=== PATIENT | male | born 1975 | race African-American/Black ===

== ENCOUNTER 2016-09-21 10:59 | Emergency (ER) | payer MEDICARE, OTHER ==
[~2016-09-21] VITALS: Ht 172.7 cm; Wt 69.0 kg
[2016-09-21 11:05] VITALS: BP 142/86
[2016-09-21] MEDS ORDERED: SODIUM CHLORIDE 0.9% 250 ML IRRIG SOLUTION BOTTLE IRRIG ONE (11:45)
[2016-09-21] MEDS ORDERED: IBUPROFEN 800 MG TABLET PO ONE (11:45)
[2016-09-21] MEDS ORDERED: PERTUSS(ACELL),DIPH,TET VAC/PF 0.5 ML VIAL IM ONE (11:45)
[2016-09-21] MEDS ORDERED: AMOX TR/POT CLAV 875 MG/125 MG TABLET PO ONE (13:15)
== END 2016-09-21 13:31 | disposition home or self-care (01) ==
LOC: EMS 11:00
DX: S41.132A Puncture wound without foreign body of left upper arm, initial encounter (principal); F17.210 Nicotine dependence, cigarettes, uncomplicated; W54.0XXA Bitten by dog, initial encounter; Y93.89 Activity, other specified; Y92.89 Other specified places as the place of occurrence of the external cause; Y99.8 Other external cause status
CPT/HCPCS: 90471; 90715; 99284; 99406

== ENCOUNTER 2016-09-21 14:38 | Emergency (ER) | payer MEDICARE, OTHER ==
[~2016-09-21] VITALS: Ht 172.7 cm; Wt 69.0 kg
[2016-09-21 15:06] VITALS: BP 134/81
== END 2016-09-21 15:27 | disposition home or self-care (01) ==
LOC: EMS 14:39
DX: S41.132A Puncture wound without foreign body of left upper arm, initial encounter (principal); F17.210 Nicotine dependence, cigarettes, uncomplicated; Z02.89 Encounter for other administrative examinations; W54.0XXA Bitten by dog, initial encounter; Y93.89 Activity, other specified; Y92.89 Other specified places as the place of occurrence of the external cause; Y99.8 Other external cause status
CPT/HCPCS: 12001; 99283

== ENCOUNTER 2017-07-13 11:22 | Inpatient (IN) | payer MEDICARE, OTHER ==
[~2017-07-13] VITALS: Ht 172.7 cm; Wt 72.0 kg
[2017-07-13 12:16] LABS: BASOPHILS % (AUTO) 1.2 % (0.0-2.0); EOSINOPHILS % (AUTO) 7.2 % (1.0-6.0); HEMATOCRIT 32.8 % (41-53); HEMOGLOBIN 11.1 g/dL (13.5-17.5); LYMPHOCYTES # (AUTO) 2.1 K/uL (1.0-4.8); LYMPHOCYTES % (AUTO) 15.8 % (22.0-44.0); MEAN CORPUSCULAR HEMOGLOBIN 27.9 pg (26.0-34.0); MEAN CORPUSCULAR HGB CONC 33.8 G/dL (31.0-37.0); MEAN CORPUSCULAR VOLUME 83 fL (80-100); MONOCYTES # (AUTO) 1.1 K/uL (0.1-1.0); MONOCYTES % (AUTO) 8.4 % (2.0-9.0); NEUTROPHILS # (AUTO) 8.8 K/uL (1.8-7.7); NEUTROPHILS % (AUTO) 67.4 % (40.0-70.0); PLATELET COUNT (AUTO) 334 K/uL (150-450); RED BLOOD CELL COUNT(AUTO) 3.96 MIL/uL (4.50-5.90); RED CELL DISTRIBUTION WIDTH 16.4 % (11.5-14.5); WHITE BLOOD COUNT (AUTO) 13.1 K/uL (4.5-11.0)
[2017-07-13 12:39] LABS: ANION GAP 13 mmol/L (8-16); CALCIUM, TOTAL 8.7 mg/dL (8.8-10.5); CARBON DIOXIDE 25 mmol/L (22-29); CHLORIDE 100 mmol/L (98-107); CREATININE 0.93 mg/dL (0.60-1.30); GLOMERULAR FILTR. RATE CALC > 60 mL/min (>60); POTASSIUM 3.7 mmol/L (3.5-5.1); SODIUM SERUM 138 mmol/L (136-145); UREA NITROGEN, BLOOD 11 mg/dL (7-18)
[2017-07-13 12:46] LABS: ALANINE AMINOTRANSFERASE 26 U/L (12-78); ALBUMIN 3.6 g/dL (3.4-5.0); ASPARTATE AMINOTRANSFERASE 23 U/L (15-37); BILIRUBIN,TOTAL 0.3 mg/dL (0.1-1.0); TOTAL PROTEIN, SERUM 7.3 g/dL (6.4-8.2)
[2017-07-13] MEDS ORDERED: LOPERAMIDE HCL 2 MG CAPSULE PO PRN (13:00)
[2017-07-13] MEDS ORDERED: MAG HYDROX/AL HYDROX/SIMETH ES 30 ML SUSPENSION UDCUP PO PRN (13:00)
[2017-07-13] MEDS ORDERED: TUBERCULIN, PURIFIED PROTEIN DERIVATIVE 5 TU/0.1 ML SYG ID ONE (13:00)
[2017-07-13] MEDS ORDERED: GuaiFENesin/D-METHORPHAN [SUGAR-FREE] 200-20MG/10 ML SYRUP UDCUP PO PRN (13:00)
[2017-07-13] MEDS ORDERED: HydrOXYzine PAMOATE 50 MG CAPSULE PO PRN (13:00)
[2017-07-13] MEDS ORDERED: PROMETHAZINE HCL 25 MG TABLET PO PRN (13:00)
[2017-07-13] MEDS ORDERED: ACETAMINOPHEN 325 MG TABLET PO PRN (13:00)
[2017-07-13] MEDS ORDERED: ZOLPIDEM TARTRATE 10 MG TABLET PO PRN (13:00)
[2017-07-13] MEDS ORDERED: MAGNESIUM HYDROXIDE SUSPENSION 30 ML UDCUP PO PRN (13:00)
[2017-07-13] MEDS ORDERED: PERMETHRIN 5% 60 GM CREAM TP ONE ×3 (14:30→19:30)
[2017-07-13] MEDS: OLANZapine 5 MG RAPDIS TABLET PO SCH (22:39)
[2017-07-13] MEDS: THIAMINE HCL 100 MG TABLET PO SCH (22:39)
[2017-07-13 23:02] VITALS: BP 108/67
[2017-07-14] MEDS ORDERED: INFLUENZA VIRUS VACCINE QVS 2017-18 (3YR+)/PF 60 MCG/0.5 ML SYRINGE IM ONE (02:45)
[2017-07-14 06:49] LABS: BASOPHILS % (AUTO) 0.8 % (0.0-2.0); EOSINOPHILS % (AUTO) 8.1 % (1.0-6.0); HEMATOCRIT 33.5 % (41-53); LYMPHOCYTES # (AUTO) 1.9 K/uL (1.0-4.8); LYMPHOCYTES % (AUTO) 18.1 % (22.0-44.0); MEAN CORPUSCULAR HEMOGLOBIN 27.3 pg (26.0-34.0); MEAN CORPUSCULAR HGB CONC 32.9 G/dL (31.0-37.0); MEAN CORPUSCULAR VOLUME 83 fL (80-100); MONOCYTES # (AUTO) 1.2 K/uL (0.1-1.0); MONOCYTES % (AUTO) 10.9 % (2.0-9.0); NEUTROPHILS # (AUTO) 6.6 K/uL (1.8-7.7); NEUTROPHILS % (AUTO) 62.1 % (40.0-70.0); PLATELET COUNT (AUTO) 337 K/uL (150-450); RED BLOOD CELL COUNT(AUTO) 4.03 MIL/uL (4.50-5.90); RED CELL DISTRIBUTION WIDTH 16.3 % (11.5-14.5); WHITE BLOOD COUNT (AUTO) 10.7 K/uL (4.5-11.0)
[2017-07-14 07:20] LABS: ALANINE AMINOTRANSFERASE 26 U/L (12-78); ALBUMIN 3.4 g/dL (3.4-5.0); ANION GAP 9 mmol/L (8-16); ASPARTATE AMINOTRANSFERASE 29 U/L (15-37); BILIRUBIN,TOTAL 0.4 mg/dL (0.1-1.0); CALCIUM, TOTAL 8.9 mg/dL (8.8-10.5); CARBON DIOXIDE 27 mmol/L (22-29); CHLORIDE 105 mmol/L (98-107); CREATININE 0.78 mg/dL (0.60-1.30); GLOMERULAR FILTR. RATE CALC > 60 mL/min (>60); SODIUM SERUM 141 mmol/L (136-145); THYROID STIMULATING HORMONE 1.23 uIU/mL (0.36-3.74); TOTAL PROTEIN, SERUM 7.3 g/dL (6.4-8.2); UREA NITROGEN, BLOOD 9 mg/dL (7-18)
[2017-07-14 07:48] LABS: HEMOGLOBIN A1C 5.6 % (4.5-6.2)
[2017-07-14] MEDS: LORazepam 2 MG TABLET PO PRN (08:10)
[2017-07-14] MEDS: MULTIVITAMINS WITH MINERALS, THERAPEUTIC TABLET PO SCH (08:10)
[2017-07-14] MEDS: OLANZapine 5 MG RAPDIS TABLET PO PRN (08:11)
[2017-07-14] MEDS: THIAMINE HCL 100 MG TABLET PO SCH ×2 (08:21→16:32)
[2017-07-14] MEDS: FOLIC ACID 1 MG TABLET PO SCH (08:21)
[2017-07-14 08:58] VITALS: BP 133/86
[2017-07-14 17:00] VITALS: BP 112/73
[2017-07-14] MEDS: OLANZapine 5 MG RAPDIS TABLET PO SCH (21:41)
[2017-07-14] MEDS: DIVALPROEX SODIUM 500 MG ER TABLET PO SCH (21:41)
[2017-07-15] MEDS: LORazepam 2 MG TABLET PO PRN ×2 (00:30→08:40)
[2017-07-15 00:43] VITALS: BP 115/67
[2017-07-15 08:34] VITALS: BP 135/88
[2017-07-15] MEDS: MULTIVITAMINS WITH MINERALS, THERAPEUTIC TABLET PO SCH (08:40)
[2017-07-15] MEDS: THIAMINE HCL 100 MG TABLET PO SCH ×2 (08:40→16:06)
[2017-07-15] MEDS: OLANZapine 5 MG RAPDIS TABLET PO PRN (08:40)
[2017-07-15] MEDS: FOLIC ACID 1 MG TABLET PO SCH (08:40)
[2017-07-15] MEDS ORDERED: OLAN10TA22 PO (12:52)
[2017-07-15] MEDS ORDERED: DIVA500T52 PO (12:52)
[2017-07-15 17:00] VITALS: BP 131/84
[2017-07-15] MEDS: DIVALPROEX SODIUM 500 MG ER TABLET PO SCH (20:05)
[2017-07-15] MEDS ORDERED: OLANZapine 10 MG RAPDIS TABLET PO SCH (21:00)
[2017-07-16 06:52] VITALS: BP 128/75
[2017-07-16] MEDS: MULTIVITAMINS WITH MINERALS, THERAPEUTIC TABLET PO SCH (08:13)
[2017-07-16] MEDS: FOLIC ACID 1 MG TABLET PO SCH (08:14)
[2017-07-16] MEDS: THIAMINE HCL 100 MG TABLET PO SCH ×2 (08:14→15:56)
[2017-07-16] MEDS: OLANZapine 5 MG RAPDIS TABLET PO PRN (08:15)
[2017-07-16] MEDS: LORazepam 2 MG TABLET PO PRN (08:15)
[2017-07-16 08:42] VITALS: BP 138/68
[2017-07-16] MEDS ORDERED: DIVA500T52 PO (10:33)
[2017-07-16] MEDS ORDERED: OLAN10TA6 PO (10:34)
[2017-07-16 19:12] VITALS: BP 103/66
== END 2017-07-16 18:30 | disposition home or self-care (01) | DRG 885 ==
LOC: EMS 11:26 → 3EX 17:11 → B2X 17:11
PROVIDERS: ADMIT Psychiatry & Neurology Psychiatry; ATTEND Psychiatry & Neurology Psychiatry
DX: F20.0 Paranoid schizophrenia (principal); Z59.0 Homelessness; D64.9 Anemia, unspecified; F17.210 Nicotine dependence, cigarettes, uncomplicated; Z81.8 Family history of other mental and behavioral disorders; Z91.19 Patient's noncompliance with other medical treatment and regimen
CPT/HCPCS: 83036; 84439; 84443; 86592; 99285; 99406; G0480

== ENCOUNTER 2018-02-06 16:36 | Inpatient (IN) | payer MEDICARE ==
[~2018-02-06] VITALS: Ht 175.3 cm; Wt 72.1 kg
[~2018-02-06 16:36] MED LIST: DIVA500T52 PO; OLAN10TA22 PO; OLAN10TA6 PO
[2018-02-06] MEDS ORDERED: LORazepam 2 MG/ML VIAL IM ONE (16:45)
[2018-02-06] MEDS ORDERED: HALOPERIDOL LACTATE 5 MG/ML VIAL IM ONE (16:45)
[2018-02-06] MEDS ORDERED: DiphenhydrAMINE HCL 50 MG/ML VIAL IM ONE (16:45)
[2018-02-06 17:37] LABS: BASOPHILS % (AUTO) 1.3 % (0.0-2.0); EOSINOPHILS % (AUTO) 1.5 % (1.0-6.0); HEMATOCRIT 32.4 % (41-53); HEMOGLOBIN 10.6 g/dL (13.5-17.5); LYMPHOCYTES # (AUTO) 1.2 K/uL (1.0-4.8); LYMPHOCYTES % (AUTO) 16.7 % (22.0-44.0); MEAN CORPUSCULAR HEMOGLOBIN 24.7 pg (26.0-34.0); MEAN CORPUSCULAR HGB CONC 32.7 G/dL (31.0-37.0); MEAN CORPUSCULAR VOLUME 76 fL (80-100); MONOCYTES # (AUTO) 0.6 K/uL (0.1-1.0); MONOCYTES % (AUTO) 8.4 % (2.0-9.0); NEUTROPHILS # (AUTO) 5.4 K/uL (1.8-7.7); NEUTROPHILS % (AUTO) 72.1 % (40.0-70.0); PLATELET COUNT (AUTO) 306 K/uL (150-450); RED BLOOD CELL COUNT(AUTO) 4.29 MIL/uL (4.50-5.90); RED CELL DISTRIBUTION WIDTH 18.3 % (11.5-14.5)
[2018-02-06 17:50] LABS: ANION GAP 9 mmol/L (8-16); CALCIUM, TOTAL 8.6 mg/dL (8.8-10.5); CARBON DIOXIDE 28 mmol/L (22-29); CHLORIDE 111 mmol/L (98-107); CREATININE 0.97 mg/dL (0.60-1.30); GLOMERULAR FILTR. RATE CALC > 60 mL/min (>60); GLUCOSE,RANDOM 104 mg/dL (70-110); POTASSIUM 3.6 mmol/L (3.5-5.1); SODIUM SERUM 148 mmol/L (136-145); UREA NITROGEN, BLOOD 15 mg/dL (7-18)
[2018-02-06 17:56] LABS: ALANINE AMINOTRANSFERASE 31 U/L (12-78); ALBUMIN 3.4 g/dL (3.4-5.0); ALKALINE PHOSPHATASE 61 U/L (46-116); ASPARTATE AMINOTRANSFERASE 25 U/L (15-37); BILIRUBIN,TOTAL 0.2 mg/dL (0.1-1.0); TOTAL PROTEIN, SERUM 6.6 g/dL (6.4-8.2)
[2018-02-06 18:14] LABS: VALPROIC ACID < 3 mcg/mL (50-100)
[2018-02-06 21:35] VITALS: BP 106/66
[2018-02-06] MEDS ORDERED: CloNIDine HCL 0.1 MG TABLET PO PRN (21:45)
[2018-02-06] MEDS ORDERED: ONDANSETRON HCL 4 MG TABLET PO PRN (21:45)
[2018-02-06] MEDS ORDERED: PETROLATUM,WHITE 71 GM JELLY TP PRN (21:45)
[2018-02-06] MEDS ORDERED: MAGNESIUM HYDROXIDE SUSPENSION 30 ML UDCUP PO PRN (21:45)
[2018-02-06] MEDS ORDERED: LOPERAMIDE HCL 2 MG CAPSULE PO PRN (21:45)
[2018-02-06] MEDS ORDERED: MAG HYDROX/AL HYDROX/SIMETH ES 30 ML SUSPENSION UDCUP PO PRN (21:45)
[2018-02-06] MEDS ORDERED: IBUPROFEN 400 MG TABLET PO PRN (21:45)
[2018-02-06] MEDS ORDERED: DOCUSATE SODIUM 100 MG CAPSULE PO PRN (21:45)
[2018-02-06] MEDS ORDERED: ALBUTEROL SULFATE HFA 90 MCG/PUFF 8 GM INHALER IH PRN (21:45)
[2018-02-06] MEDS ORDERED: ACETAMINOPHEN 325 MG TABLET PO PRN (21:45)
[2018-02-07 06:08] VITALS: BP 118/68
[2018-02-07 08:05] VITALS: BP 108/77
[2018-02-07] MEDS: LORazepam 2 MG TABLET PO PRN (09:36)
[2018-02-07] MEDS: NICOTINE 14 MG/24 HOUR PATCH TD SCH (09:38)
[2018-02-07] MEDS: HALOPERIDOL 5 MG TABLET PO PRN (16:07)
[2018-02-07 16:49] VITALS: BP 121/86
[2018-02-07] MEDS: DIVALPROEX SODIUM 500 MG ER TABLET PO SCH (20:23)
[2018-02-07] MEDS: OLANZapine 10 MG TABLET PO SCH (20:23)
[2018-02-08 05:33] VITALS: BP 118/85
[2018-02-08 08:05] VITALS: BP 114/72
[2018-02-08 08:43] LABS: BASOPHILS % (AUTO) 0.9 % (0.0-2.0); EOSINOPHILS % (AUTO) 3.7 % (1.0-6.0); HEMATOCRIT 34.4 % (41-53); HEMOGLOBIN 11.1 g/dL (13.5-17.5); LYMPHOCYTES # (AUTO) 1.9 K/uL (1.0-4.8); LYMPHOCYTES % (AUTO) 22.6 % (22.0-44.0); MEAN CORPUSCULAR HEMOGLOBIN 24.6 pg (26.0-34.0); MEAN CORPUSCULAR HGB CONC 32.3 G/dL (31.0-37.0); MEAN CORPUSCULAR VOLUME 76 fL (80-100); MONOCYTES # (AUTO) 0.6 K/uL (0.1-1.0); MONOCYTES % (AUTO) 6.8 % (2.0-9.0); NEUTROPHILS # (AUTO) 5.5 K/uL (1.8-7.7); PLATELET COUNT (AUTO) 313 K/uL (150-450); RED BLOOD CELL COUNT(AUTO) 4.52 MIL/uL (4.50-5.90); RED CELL DISTRIBUTION WIDTH 18.5 % (11.5-14.5)
[2018-02-08] MEDS: NICOTINE 14 MG/24 HOUR PATCH TD SCH (09:00)
[2018-02-08 09:03] LABS: HEMOGLOBIN A1C 6.1 % (4.5-6.2)
[2018-02-08 10:18] LABS: ALANINE AMINOTRANSFERASE 30 U/L (12-78); ALBUMIN 3.4 g/dL (3.4-5.0); ALKALINE PHOSPHATASE 59 U/L (46-116); ANION GAP 7 mmol/L (8-16); ASPARTATE AMINOTRANSFERASE 30 U/L (15-37); BILIRUBIN,TOTAL 0.2 mg/dL (0.1-1.0); CALCIUM, TOTAL 8.6 mg/dL (8.8-10.5); CARBON DIOXIDE 30 mmol/L (22-29); CHLORIDE 104 mmol/L (98-107); CHOLESTEROL 121 mg/dL (131-200); CREATININE 0.86 mg/dL (0.60-1.30); GLOMERULAR FILTR. RATE CALC > 60 mL/min (>60); GLUCOSE,RANDOM 93 mg/dL (70-110); HDL CHOLESTEROL 40 mg/dL (40-60); LDL CHOL (CALC.) 66 mg/dL (0-130); POTASSIUM 4.1 mmol/L (3.5-5.1); SODIUM SERUM 141 mmol/L (136-145); THYROID STIMULATING HORMONE 1.81 uIU/mL (0.36-3.74); TOTAL PROTEIN, SERUM 6.8 g/dL (6.4-8.2); TRIGLYCERIDES 76 mg/dL (15-150); UREA NITROGEN, BLOOD 11 mg/dL (7-18); VALPROIC ACID 44 mcg/mL (50-100)
[2018-02-08 16:00] VITALS: BP 134/72
[2018-02-08] MEDS: HALOPERIDOL 5 MG TABLET PO PRN (16:59)
[2018-02-08] MEDS: LORazepam 2 MG TABLET PO PRN (16:59)
[2018-02-08] MEDS: DIVALPROEX SODIUM 500 MG ER TABLET PO SCH (21:07)
[2018-02-08] MEDS: OLANZapine 10 MG TABLET PO SCH (21:08)
[2018-02-08] MEDS: ZOLPIDEM TARTRATE 10 MG TABLET PO PRN (21:08)
[2018-02-09 04:11] VITALS: BP 109/91
[2018-02-09 08:26] VITALS: BP 110/72
[2018-02-09] MEDS: NICOTINE 14 MG/24 HOUR PATCH TD SCH (09:00)
[2018-02-09 09:04] LABS: ANION GAP 5 mmol/L (8-16); CALCIUM, TOTAL 8.9 mg/dL (8.8-10.5); CARBON DIOXIDE 31 mmol/L (22-29); CHLORIDE 104 mmol/L (98-107); CREATININE 0.81 mg/dL (0.60-1.30); GLOMERULAR FILTR. RATE CALC > 60 mL/min (>60); GLUCOSE,RANDOM 74 mg/dL (70-110); POTASSIUM 4.2 mmol/L (3.5-5.1); SODIUM SERUM 140 mmol/L (136-145); UREA NITROGEN, BLOOD 10 mg/dL (7-18)
[2018-02-09 16:20] VITALS: BP 123/76
[2018-02-09] MEDS: ZOLPIDEM TARTRATE 10 MG TABLET PO PRN (20:52)
[2018-02-09] MEDS: OLANZapine 10 MG TABLET PO SCH (20:52)
[2018-02-09] MEDS: DIVALPROEX SODIUM 500 MG ER TABLET PO SCH (20:52)
[2018-02-10 03:39] VITALS: BP 117/68
[2018-02-10 08:15] VITALS: BP 123/73
[2018-02-10 16:00] VITALS: BP 107/73
[2018-02-10] MEDS: LORazepam 2 MG TABLET PO PRN (16:18)
[2018-02-10] MEDS: ZOLPIDEM TARTRATE 10 MG TABLET PO PRN (21:10)
[2018-02-10] MEDS: OLANZapine 7.5 MG TABLET PO SCH (21:10)
[2018-02-10] MEDS: DIVALPROEX SODIUM 500 MG ER TABLET PO SCH (21:10)
[2018-02-11 02:08] VITALS: BP 106/88
[2018-02-11 08:05] VITALS: BP 108/69
[2018-02-11] MEDS: LORazepam 2 MG TABLET PO PRN (08:27)
[2018-02-11 16:39] VITALS: BP 101/68
[2018-02-11] MEDS: ZOLPIDEM TARTRATE 10 MG TABLET PO PRN (21:53)
[2018-02-11] MEDS: OLANZapine 7.5 MG TABLET PO SCH (21:53)
[2018-02-11] MEDS: DIVALPROEX SODIUM 500 MG ER TABLET PO SCH (21:53)
[2018-02-12 01:25] VITALS: BP 125/82
[2018-02-12] MEDS: LORazepam 2 MG TABLET PO PRN (01:55)
[2018-02-12 08:09] VITALS: BP 124/62
[2018-02-12 16:06] VITALS: BP 118/65
[2018-02-12] MEDS: DIVALPROEX SODIUM 500 MG ER TABLET PO SCH (20:24)
[2018-02-12] MEDS: OLANZapine 10 MG TABLET PO SCH (20:25)
[2018-02-13 05:20] VITALS: BP 125/78
[2018-02-13 08:28] VITALS: BP 120/57
[2018-02-13] MEDS: LORazepam 2 MG TABLET PO PRN (08:32)
[2018-02-13] MEDS: OLANZapine 10 MG TABLET PO SCH (20:26)
[2018-02-13] MEDS: DIVALPROEX SODIUM 500 MG ER TABLET PO SCH (20:26)
[2018-02-14] MEDS: LORazepam 2 MG TABLET PO PRN ×3 (01:13→17:08)
[2018-02-14] MEDS: ZOLPIDEM TARTRATE 10 MG TABLET PO PRN (01:13)
[2018-02-14 01:19] VITALS: BP 128/69
[2018-02-14 08:15] VITALS: BP 104/69
[2018-02-14] MEDS: HALOPERIDOL 5 MG TABLET PO PRN ×2 (08:38→17:08)
[2018-02-14 16:00] VITALS: BP 103/71
[2018-02-14] MEDS: DIVALPROEX SODIUM 500 MG ER TABLET PO SCH (20:24)
[2018-02-14] MEDS: OLANZapine 10 MG TABLET PO SCH (20:24)
[2018-02-15 00:28] VITALS: BP 110/69
[2018-02-15] MEDS: LORazepam 2 MG TABLET PO PRN (08:11)
[2018-02-15] MEDS: HALOPERIDOL 5 MG TABLET PO PRN (08:11)
[2018-02-15 10:35] VITALS: BP 140/76
[2018-02-15 16:00] VITALS: BP 106/80
== END 2018-02-15 18:30 | disposition home or self-care (01) | DRG 885 ==
LOC: EMS 16:37 → B3A 20:19
DX: F25.1 Schizoaffective disorder, depressive type (principal); E87.0 Hyperosmolality and hypernatremia; D64.9 Anemia, unspecified; F41.9 Anxiety disorder, unspecified; F17.210 Nicotine dependence, cigarettes, uncomplicated; G47.00 Insomnia, unspecified; Z59.0 Homelessness; Z91.19 Patient's noncompliance with other medical treatment and regimen
CPT/HCPCS: 83036; 84443; 96372; 99285; G0480; J1200; J1630; J2060; J3535

== ENCOUNTER 2018-03-30 15:33 | Inpatient (IN) | payer MEDICARE ==
[~2018-03-30] VITALS: Ht 167.6 cm; Wt 79.8 kg
[~2018-03-30 15:33] MED LIST changes: -OLAN10TA22 PO
[2018-03-30] MEDS ORDERED: HALOPERIDOL LACTATE 5 MG/ML VIAL IM ONE (16:30)
[2018-03-30] MEDS ORDERED: LORazepam 2 MG/ML VIAL IM ONE (16:30)
[2018-03-30] MEDS ORDERED: DiphenhydrAMINE HCL 50 MG/ML VIAL IM ONE (16:30)
[2018-03-30 18:15] LABS: BASOPHILS % (AUTO) 0.8 % (0.0-2.0); EOSINOPHILS % (AUTO) 1.3 % (1.0-6.0); HEMATOCRIT 34.7 % (41-53); HEMOGLOBIN 11.3 g/dL (13.5-17.5); LYMPHOCYTES # (AUTO) 1.9 K/uL (1.0-4.8); LYMPHOCYTES % (AUTO) 18.3 % (22.0-44.0); MEAN CORPUSCULAR HGB CONC 32.6 G/dL (31.0-37.0); MEAN CORPUSCULAR VOLUME 77 fL (80-100); MONOCYTES # (AUTO) 0.9 K/uL (0.1-1.0); MONOCYTES % (AUTO) 8.3 % (2.0-9.0); NEUTROPHILS # (AUTO) 7.5 K/uL (1.8-7.7); NEUTROPHILS % (AUTO) 71.3 % (40.0-70.0); PLATELET COUNT (AUTO) 304 K/uL (150-450); RED BLOOD CELL COUNT(AUTO) 4.53 MIL/uL (4.50-5.90)
[2018-03-30 18:28] LABS: ANION GAP 8 mmol/L (8-16); CALCIUM, TOTAL 8.9 mg/dL (8.8-10.5); CARBON DIOXIDE 26 mmol/L (22-29); CHLORIDE 105 mmol/L (98-107); CREATININE 0.98 mg/dL (0.60-1.30); GLOMERULAR FILTR. RATE CALC > 60 mL/min (>60); GLUCOSE,RANDOM 83 mg/dL (70-110); POTASSIUM 3.7 mmol/L (3.5-5.1); SODIUM SERUM 139 mmol/L (136-145); UREA NITROGEN, BLOOD 18 mg/dL (7-18)
[2018-03-30 18:33] LABS: ALANINE AMINOTRANSFERASE 21 U/L (12-78); ALKALINE PHOSPHATASE 64 U/L (46-116); ASPARTATE AMINOTRANSFERASE 18 U/L (15-37); BILIRUBIN,TOTAL 0.4 mg/dL (0.1-1.0); TOTAL PROTEIN, SERUM 7.5 g/dL (6.4-8.2)
[2018-03-30] MEDS ORDERED: HALOPERIDOL 5 MG TABLET PO PRN (19:15)
[2018-03-30] MEDS ORDERED: ZOLPIDEM TARTRATE 10 MG TABLET PO PRN (19:15)
[2018-03-31 07:31] LABS: AMPHET/METH SCREEN,URINE NEGATIVE (NEGATIVE); BARBITURATE SCREEN, URINE NEGATIVE (NEGATIVE); BENZODIAZEPINES SCREEN,URINE NEGATIVE (NEGATIVE); CANNABINOID SCREEN,URINE NEGATIVE (NEGATIVE); COCAINE SCREEN,URINE NEGATIVE (NEGATIVE); METHADONE SCREEN, URINE NEGATIVE (NEGATIVE); OPIATE SCREEN,URINE NEGATIVE (NEGATIVE)
[2018-03-31 07:34] LABS: PHENCYCLIDINE SCREEN,URINE NEGATIVE (NEGATIVE)
[2018-03-31] MEDS ORDERED: HALOPERIDOL LACTATE 5 MG/ML VIAL IM ONE (08:00)
[2018-03-31] MEDS ORDERED: LORazepam 2 MG/ML VIAL IM ONE (08:00)
[2018-03-31] MEDS ORDERED: DiphenhydrAMINE HCL 50 MG/ML VIAL IM ONE (08:00)
[2018-03-31] MEDS ORDERED: MAG HYDROX/AL HYDROX/SIMETH ES 30 ML SUSPENSION UDCUP PO PRN (15:45)
[2018-03-31] MEDS ORDERED: MAGNESIUM HYDROXIDE SUSPENSION 30 ML UDCUP PO PRN (15:45)
[2018-03-31] MEDS ORDERED: ACETAMINOPHEN 325 MG TABLET PO PRN (15:45)
[2018-03-31 16:30] VITALS: BP 123/70
[2018-04-01] MEDS: LORazepam 2 MG TABLET PO PRN (07:42)
[2018-04-01] MEDS: DIVALPROEX SODIUM 500 MG ER TABLET PO SCH (22:00)
[2018-04-01] MEDS: OLANZapine 10 MG RAPDIS TABLET PO SCH (22:00)
[2018-04-01] MEDS ORDERED: DOCUSATE SODIUM 100 MG CAPSULE PO PRN (23:00)
[2018-04-01] MEDS ORDERED: CloNIDine HCL 0.1 MG TABLET PO PRN (23:00)
[2018-04-01] MEDS ORDERED: MAGNESIUM HYDROXIDE SUSPENSION 30 ML UDCUP PO PRN (23:00)
[2018-04-01] MEDS ORDERED: GuaiFENesin/D-METHORPHAN [SUGAR-FREE] 200-20MG/10 ML SYRUP UDCUP PO PRN (23:00)
[2018-04-01] MEDS ORDERED: ALBUTEROL SULFATE HFA 90 MCG/PUFF 8 GM INHALER IH PRN (23:00)
[2018-04-01] MEDS ORDERED: MAG HYDROX/AL HYDROX/SIMETH ES 30 ML SUSPENSION UDCUP PO PRN (23:00)
[2018-04-01] MEDS ORDERED: IBUPROFEN 400 MG TABLET PO PRN (23:00)
[2018-04-01] MEDS ORDERED: ONDANSETRON HCL 4 MG TABLET PO PRN (23:00)
[2018-04-01] MEDS ORDERED: PETROLATUM,WHITE 71 GM JELLY TP PRN (23:00)
[2018-04-01] MEDS ORDERED: LOPERAMIDE HCL 2 MG CAPSULE PO PRN (23:00)
[2018-04-01] MEDS ORDERED: NICOTINE 14 MG/24 HOUR PATCH TD PRN (23:00)
[2018-04-01] MEDS ORDERED: ACETAMINOPHEN 325 MG TABLET PO PRN (23:00)
[2018-04-02] MEDS: FERROUS SULFATE 325 MG EC TABLET PO SCH ×2 (06:51→16:19)
[2018-04-02 17:44] VITALS: BP 118/74
[2018-04-02] MEDS: OLANZapine 10 MG RAPDIS TABLET PO SCH (20:28)
[2018-04-02] MEDS: DIVALPROEX SODIUM 500 MG ER TABLET PO SCH (20:28)
[2018-04-03] MEDS: FERROUS SULFATE 325 MG EC TABLET PO SCH ×2 (07:05→17:42)
[2018-04-03 09:20] VITALS: BP 95/63
[2018-04-03 16:49] VITALS: BP 103/73
[2018-04-03] MEDS: DIVALPROEX SODIUM 500 MG ER TABLET PO SCH (20:53)
[2018-04-03] MEDS: OLANZapine 10 MG RAPDIS TABLET PO SCH (20:53)
[2018-04-04] MEDS: FERROUS SULFATE 325 MG EC TABLET PO SCH ×2 (06:54→17:35)
[2018-04-04 08:04] VITALS: BP 144/91
[2018-04-04 16:26] VITALS: BP 136/70
[2018-04-04] MEDS: OLANZapine 10 MG RAPDIS TABLET PO SCH (20:15)
[2018-04-04] MEDS: DIVALPROEX SODIUM 500 MG ER TABLET PO SCH (20:15)
[2018-04-05] MEDS: FERROUS SULFATE 325 MG EC TABLET PO SCH ×2 (07:01→16:23)
[2018-04-05 08:40] VITALS: BP 115/75
[2018-04-05] MEDS: OLANZapine 10 MG TABLET PO SCH (20:10)
[2018-04-05] MEDS: DIVALPROEX SODIUM 500 MG ER TABLET PO SCH (20:10)
[2018-04-06] MEDS: FERROUS SULFATE 325 MG EC TABLET PO SCH ×2 (07:10→16:52)
[2018-04-06 08:13] VITALS: BP 116/99
[2018-04-06 16:00] VITALS: BP 111/67
[2018-04-06] MEDS: OLANZapine 10 MG TABLET PO SCH (20:20)
[2018-04-06] MEDS: DIVALPROEX SODIUM 500 MG ER TABLET PO SCH (20:20)
[2018-04-07] MEDS: FERROUS SULFATE 325 MG EC TABLET PO SCH ×2 (06:53→16:07)
[2018-04-07 08:21] VITALS: BP 97/58
[2018-04-07 17:19] VITALS: BP 109/64
[2018-04-07] MEDS: DIVALPROEX SODIUM 500 MG ER TABLET PO SCH (20:20)
[2018-04-07] MEDS: OLANZapine 10 MG TABLET PO SCH (20:21)
[2018-04-08 01:33] VITALS: BP 143/82
[2018-04-08] MEDS: FERROUS SULFATE 325 MG EC TABLET PO SCH ×2 (06:40→16:42)
[2018-04-08 09:02] VITALS: BP 124/64
[2018-04-08 16:04] VITALS: BP 134/84
[2018-04-08] MEDS: OLANZapine 10 MG TABLET PO SCH (20:10)
[2018-04-08] MEDS: DIVALPROEX SODIUM 500 MG ER TABLET PO SCH (20:10)
[2018-04-09] MEDS: FERROUS SULFATE 325 MG EC TABLET PO SCH ×2 (06:54→16:50)
[2018-04-09 08:21] VITALS: BP 118/70
[2018-04-09 08:26] VITALS: BP 118/70
[2018-04-09 16:03] VITALS: BP 122/78
[2018-04-09] MEDS: DIVALPROEX SODIUM 500 MG ER TABLET PO SCH (20:42)
[2018-04-09] MEDS: OLANZapine 10 MG TABLET PO SCH (20:42)
[2018-04-10] MEDS: FERROUS SULFATE 325 MG EC TABLET PO SCH ×2 (06:50→16:40)
[2018-04-10 08:07] VITALS: BP 118/84
[2018-04-10] MEDS: OLANZapine 10 MG TABLET PO SCH (20:38)
[2018-04-10] MEDS: DIVALPROEX SODIUM 500 MG ER TABLET PO SCH (20:38)
[2018-04-11] MEDS: FERROUS SULFATE 325 MG EC TABLET PO SCH ×2 (06:59→16:25)
[2018-04-11 08:06] VITALS: BP 137/68
[2018-04-11] MEDS: OLANZapine 10 MG TABLET PO SCH (20:13)
[2018-04-11] MEDS: DIVALPROEX SODIUM 500 MG ER TABLET PO SCH (20:13)
[2018-04-11 20:45] VITALS: BP 119/71
[2018-04-12] MEDS: FERROUS SULFATE 325 MG EC TABLET PO SCH ×2 (07:03→16:23)
[2018-04-12 08:17] VITALS: BP 119/74
[2018-04-12 16:00] VITALS: BP 114/71
[2018-04-12] MEDS: DIVALPROEX SODIUM 500 MG ER TABLET PO SCH (20:24)
[2018-04-12] MEDS: OLANZapine 10 MG TABLET PO SCH (20:24)
[2018-04-13] MEDS: FERROUS SULFATE 325 MG EC TABLET PO SCH ×2 (07:04→18:19)
[2018-04-13 09:17] VITALS: BP 107/71
[2018-04-13] MEDS: OLANZapine 10 MG TABLET PO SCH (20:46)
[2018-04-13] MEDS: DIVALPROEX SODIUM 500 MG ER TABLET PO SCH (20:46)
[2018-04-14 08:00] VITALS: BP 110/76
[2018-04-14] MEDS: FERROUS SULFATE 325 MG EC TABLET PO SCH ×2 (08:00→17:08)
[2018-04-14] MEDS: DIVALPROEX SODIUM 500 MG ER TABLET PO SCH (20:27)
[2018-04-14] MEDS: OLANZapine 10 MG TABLET PO SCH (20:27)
[2018-04-15] MEDS: FERROUS SULFATE 325 MG EC TABLET PO SCH ×2 (06:50→16:31)
[2018-04-15 09:57] VITALS: BP 100/59
[2018-04-15 16:18] VITALS: BP 110/72
[2018-04-15] MEDS: DIVALPROEX SODIUM 500 MG ER TABLET PO SCH (20:31)
[2018-04-15] MEDS: OLANZapine 10 MG TABLET PO SCH (20:32)
[2018-04-16] MEDS: FERROUS SULFATE 325 MG EC TABLET PO SCH ×2 (07:01→17:34)
[2018-04-16 08:10] VITALS: BP 90/65
[2018-04-16 17:01] VITALS: BP 101/63
[2018-04-16] MEDS: DIVALPROEX SODIUM 500 MG ER TABLET PO SCH (20:16)
[2018-04-16] MEDS: OLANZapine 10 MG TABLET PO SCH (20:16)
[2018-04-17] MEDS: FERROUS SULFATE 325 MG EC TABLET PO SCH ×2 (06:57→16:28)
[2018-04-17 11:42] VITALS: BP 121/87
[2018-04-17 16:00] VITALS: BP 104/66
[2018-04-17] MEDS: DIVALPROEX SODIUM 500 MG ER TABLET PO SCH (20:37)
[2018-04-17] MEDS: OLANZapine 10 MG TABLET PO SCH (20:37)
[2018-04-18] MEDS: FERROUS SULFATE 325 MG EC TABLET PO SCH ×2 (06:55→17:29)
[2018-04-18 08:00] VITALS: BP 99/76
[2018-04-18 18:48] VITALS: BP 110/77
[2018-04-18] MEDS: DIVALPROEX SODIUM 500 MG ER TABLET PO SCH (21:03)
[2018-04-18] MEDS: OLANZapine 10 MG TABLET PO SCH (21:04)
[2018-04-19] MEDS: FERROUS SULFATE 325 MG EC TABLET PO SCH ×2 (07:02→16:35)
[2018-04-19] MEDS: OLANZapine 10 MG TABLET PO SCH (20:49)
[2018-04-19] MEDS: DIVALPROEX SODIUM 500 MG ER TABLET PO SCH (20:49)
[2018-04-20] MEDS: FERROUS SULFATE 325 MG EC TABLET PO SCH ×2 (07:05→17:36)
[2018-04-20] MEDS: DIVALPROEX SODIUM 500 MG ER TABLET PO SCH (20:32)
[2018-04-20] MEDS: OLANZapine 10 MG TABLET PO SCH (20:32)
[2018-04-21] MEDS: FERROUS SULFATE 325 MG EC TABLET PO SCH ×2 (06:55→16:35)
[2018-04-21 16:00] VITALS: BP 111/64
[2018-04-21] MEDS: DIVALPROEX SODIUM 500 MG ER TABLET PO SCH (20:17)
[2018-04-21] MEDS: OLANZapine 10 MG TABLET PO SCH (20:17)
[2018-04-22] MEDS: FERROUS SULFATE 325 MG EC TABLET PO SCH ×2 (07:00→16:02)
[2018-04-22 12:02] VITALS: BP 126/74
[2018-04-22] MEDS: LORazepam 2 MG TABLET PO PRN (16:01)
[2018-04-22 16:09] VITALS: BP 118/65
[2018-04-22] MEDS: DIVALPROEX SODIUM 500 MG ER TABLET PO SCH (20:21)
[2018-04-22] MEDS: OLANZapine 10 MG TABLET PO SCH (20:21)
[2018-04-23] MEDS: FERROUS SULFATE 325 MG EC TABLET PO SCH ×2 (06:44→16:21)
[2018-04-23 16:00] VITALS: BP 116/72
[2018-04-23] MEDS: DIVALPROEX SODIUM 500 MG ER TABLET PO SCH (22:03)
[2018-04-23] MEDS: OLANZapine 10 MG TABLET PO SCH (22:03)
[2018-04-24] MEDS: FERROUS SULFATE 325 MG EC TABLET PO SCH ×2 (06:50→16:06)
[2018-04-24 17:05] VITALS: BP 115/84
[2018-04-24] MEDS: DIVALPROEX SODIUM 500 MG ER TABLET PO SCH (20:05)
[2018-04-24] MEDS: OLANZapine 10 MG TABLET PO SCH (20:06)
[2018-04-25] MEDS: FERROUS SULFATE 325 MG EC TABLET PO SCH ×2 (07:04→16:35)
[2018-04-25 10:50] VITALS: BP 122/76
[2018-04-25 16:33] VITALS: BP 123/73
[2018-04-25] MEDS: DIVALPROEX SODIUM 500 MG ER TABLET PO SCH (20:28)
[2018-04-25] MEDS: OLANZapine 10 MG TABLET PO SCH (20:29)
[2018-04-26] MEDS: FERROUS SULFATE 325 MG EC TABLET PO SCH ×2 (06:56→16:02)
[2018-04-26 08:23] VITALS: BP 107/68
[2018-04-26 17:33] VITALS: BP 107/63
[2018-04-26] MEDS: OLANZapine 10 MG TABLET PO SCH (20:30)
[2018-04-26] MEDS: DIVALPROEX SODIUM 500 MG ER TABLET PO SCH (20:30)
[2018-04-27] MEDS: FERROUS SULFATE 325 MG EC TABLET PO SCH ×2 (06:52→17:42)
[2018-04-27 09:26] VITALS: BP 110/69
[2018-04-27 16:00] VITALS: BP 112/64
[2018-04-27] MEDS: OLANZapine 10 MG TABLET PO SCH (20:38)
[2018-04-27] MEDS: DIVALPROEX SODIUM 500 MG ER TABLET PO SCH (20:38)
[2018-04-28] MEDS: FERROUS SULFATE 325 MG EC TABLET PO SCH ×2 (06:56→16:45)
[2018-04-28 08:02] VITALS: BP 116/77
[2018-04-28 16:19] VITALS: BP 100/63
[2018-04-28] MEDS: OLANZapine 10 MG TABLET PO SCH (21:12)
[2018-04-28] MEDS: DIVALPROEX SODIUM 500 MG ER TABLET PO SCH (21:12)
[2018-04-29] MEDS: FERROUS SULFATE 325 MG EC TABLET PO SCH ×2 (06:55→17:33)
[2018-04-29 08:07] VITALS: BP 126/78
[2018-04-29 16:38] VITALS: BP 108/93
[2018-04-29] MEDS: DIVALPROEX SODIUM 500 MG ER TABLET PO SCH (21:33)
[2018-04-29] MEDS: OLANZapine 10 MG TABLET PO SCH (21:33)
[2018-04-30] MEDS: FERROUS SULFATE 325 MG EC TABLET PO SCH ×2 (06:47→16:11)
[2018-04-30 08:06] VITALS: BP 130/76
[2018-04-30 16:25] VITALS: BP 130/76
[2018-04-30] MEDS: DIVALPROEX SODIUM 500 MG ER TABLET PO SCH (20:48)
[2018-04-30] MEDS: OLANZapine 10 MG TABLET PO SCH (20:48)
[2018-05-01] MEDS: FERROUS SULFATE 325 MG EC TABLET PO SCH ×2 (07:01→17:29)
[2018-05-01 08:51] VITALS: BP 111/77
[2018-05-01 16:00] VITALS: BP 101/66
[2018-05-01] MEDS: DIVALPROEX SODIUM 500 MG ER TABLET PO SCH (20:27)
[2018-05-01] MEDS: OLANZapine 10 MG TABLET PO SCH (20:27)
[2018-05-02] MEDS: FERROUS SULFATE 325 MG EC TABLET PO SCH ×2 (06:56→18:30)
[2018-05-02 08:56] VITALS: BP 130/88
[2018-05-02 16:40] VITALS: BP 141/70
[2018-05-02] MEDS: OLANZapine 10 MG TABLET PO SCH (20:43)
[2018-05-02] MEDS: DIVALPROEX SODIUM 500 MG ER TABLET PO SCH (20:43)
[2018-05-03] MEDS: FERROUS SULFATE 325 MG EC TABLET PO SCH ×2 (06:52→16:21)
[2018-05-03 09:15] VITALS: BP 104/73
[2018-05-03 17:02] VITALS: BP 126/82
[2018-05-03] MEDS: OLANZapine 10 MG TABLET PO SCH (21:45)
[2018-05-03] MEDS: DIVALPROEX SODIUM 500 MG ER TABLET PO SCH (21:45)
[2018-05-04] MEDS: FERROUS SULFATE 325 MG EC TABLET PO SCH ×2 (06:31→17:52)
[2018-05-04 08:34] VITALS: BP 142/67
[2018-05-04 16:00] VITALS: BP 103/62
[2018-05-04] MEDS: DIVALPROEX SODIUM 500 MG ER TABLET PO SCH (20:28)
[2018-05-04] MEDS: OLANZapine 10 MG TABLET PO SCH (20:28)
[2018-05-05] MEDS: FERROUS SULFATE 325 MG EC TABLET PO SCH ×2 (06:56→16:28)
[2018-05-05 08:02] VITALS: BP 136/78
[2018-05-05 16:44] VITALS: BP 142/90
[2018-05-05] MEDS: OLANZapine 10 MG TABLET PO SCH (22:23)
[2018-05-05] MEDS: DIVALPROEX SODIUM 500 MG ER TABLET PO SCH (22:24)
[2018-05-06] MEDS: FERROUS SULFATE 325 MG EC TABLET PO SCH ×2 (07:02→16:22)
[2018-05-06 08:10] VITALS: BP 102/66
[2018-05-06 16:40] VITALS: BP 111/72
[2018-05-06] MEDS: DIVALPROEX SODIUM 500 MG ER TABLET PO SCH (20:25)
[2018-05-06] MEDS: OLANZapine 10 MG TABLET PO SCH (20:25)
[2018-05-07] MEDS: FERROUS SULFATE 325 MG EC TABLET PO SCH ×2 (06:35→16:35)
[2018-05-07 08:22] VITALS: BP 114/79
[2018-05-07 16:35] VITALS: BP 129/76
[2018-05-07 16:36] VITALS: BP 129/76
[2018-05-07] MEDS: OLANZapine 10 MG TABLET PO SCH (20:14)
[2018-05-07] MEDS: DIVALPROEX SODIUM 500 MG ER TABLET PO SCH (20:14)
[2018-05-08] MEDS: FERROUS SULFATE 325 MG EC TABLET PO SCH ×2 (07:01→16:20)
[2018-05-08 08:09] VITALS: BP 115/58
[2018-05-08 16:33] VITALS: BP 113/79
[2018-05-08] MEDS: DIVALPROEX SODIUM 500 MG ER TABLET PO SCH (20:08)
[2018-05-08] MEDS: OLANZapine 10 MG TABLET PO SCH (20:08)
[2018-05-09] MEDS: FERROUS SULFATE 325 MG EC TABLET PO SCH ×2 (06:59→16:29)
[2018-05-09 16:52] VITALS: BP 134/71
[2018-05-09] MEDS: DIVALPROEX SODIUM 500 MG ER TABLET PO SCH (20:23)
[2018-05-09] MEDS: OLANZapine 10 MG TABLET PO SCH (20:23)
[2018-05-10] MEDS: FERROUS SULFATE 325 MG EC TABLET PO SCH ×2 (06:58→16:49)
[2018-05-10 09:59] VITALS: BP 103/76
[2018-05-10 16:08] VITALS: BP 100/69
[2018-05-10] MEDS: OLANZapine 10 MG TABLET PO SCH (20:22)
[2018-05-10] MEDS: DIVALPROEX SODIUM 500 MG ER TABLET PO SCH (20:22)
[2018-05-11] MEDS: FERROUS SULFATE 325 MG EC TABLET PO SCH ×2 (07:04→17:40)
[2018-05-11 08:35] VITALS: BP 100/71
[2018-05-11] MEDS: OLANZapine 10 MG TABLET PO SCH (20:15)
[2018-05-11] MEDS: DIVALPROEX SODIUM 500 MG ER TABLET PO SCH (20:15)
[2018-05-12] MEDS: FERROUS SULFATE 325 MG EC TABLET PO SCH ×2 (06:55→17:30)
[2018-05-12 09:00] VITALS: BP 109/59
[2018-05-12 16:11] VITALS: BP 129/67
[2018-05-12] MEDS: OLANZapine 10 MG TABLET PO SCH (21:37)
[2018-05-12] MEDS: DIVALPROEX SODIUM 500 MG ER TABLET PO SCH (21:37)
[2018-05-13] MEDS: FERROUS SULFATE 325 MG EC TABLET PO SCH ×2 (06:55→16:17)
[2018-05-13 08:16] VITALS: BP 109/68
[2018-05-13 08:17] VITALS: BP 109/68
[2018-05-13 16:34] VITALS: BP 105/66
[2018-05-13] MEDS: DIVALPROEX SODIUM 500 MG ER TABLET PO SCH (20:16)
[2018-05-13] MEDS: OLANZapine 10 MG TABLET PO SCH (20:16)
[2018-05-14] MEDS: FERROUS SULFATE 325 MG EC TABLET PO SCH ×2 (06:56→17:32)
[2018-05-14 09:18] VITALS: BP 113/93
[2018-05-14 16:55] VITALS: BP 146/70
[2018-05-14] MEDS: DIVALPROEX SODIUM 500 MG ER TABLET PO SCH (20:06)
[2018-05-14] MEDS: OLANZapine 10 MG TABLET PO SCH (20:06)
[2018-05-15] MEDS: FERROUS SULFATE 325 MG EC TABLET PO SCH ×2 (06:55→17:15)
[2018-05-15 08:00] VITALS: BP 114/71
[2018-05-15] MEDS ORDERED: DIVA500T52 PO (12:50)
[2018-05-15] MEDS ORDERED: OLAN10TA20 PO (12:50)
[2018-05-15] MEDS ORDERED: FERR-89 PO (14:05)
[2018-05-15 16:20] VITALS: BP 109/73
[2018-05-15] MEDS: DIVALPROEX SODIUM 500 MG ER TABLET PO SCH (20:30)
[2018-05-15] MEDS: OLANZapine 10 MG TABLET PO SCH (20:31)
[2018-05-16] MEDS: FERROUS SULFATE 325 MG EC TABLET PO SCH (07:03)
== END 2018-05-16 14:48 | disposition home or self-care (01) | DRG 885 ==
LOC: EMS 15:34 → 3EC 03-31 10:24
DX: F20.0 Paranoid schizophrenia (principal); G47.00 Insomnia, unspecified; F17.210 Nicotine dependence, cigarettes, uncomplicated; D64.9 Anemia, unspecified; F41.9 Anxiety disorder, unspecified; Z59.0 Homelessness
CPT/HCPCS: 84443; 87081; G0480; J1200; J1630; J2060

== ENCOUNTER 2018-09-19 09:57 | Inpatient (IN) | payer MEDICARE, MEDICAID ==
[~2018-09-19] VITALS: Ht 172.7 cm; Wt 78.5 kg
[~2018-09-19 09:57] MED LIST changes: +FERR-89 PO; +OLAN10TA20 PO; -OLAN10TA6 PO
[2018-09-19 11:25] LABS: BASOPHILS % (AUTO) 0.6 % (0.0-2.0); EOSINOPHILS % (AUTO) 1.4 % (1.0-6.0); HEMATOCRIT 43.2 % (41-53); HEMOGLOBIN 14.6 g/dL (13.5-17.5); LYMPHOCYTES # (AUTO) 1.6 K/uL (1.0-4.8); MEAN CORPUSCULAR HEMOGLOBIN 29.4 pg (26.0-34.0); MEAN CORPUSCULAR HGB CONC 33.7 G/dL (31.0-37.0); MEAN CORPUSCULAR VOLUME 87 fL (80-100); MONOCYTES # (AUTO) 0.9 K/uL (0.1-1.0); PLATELET COUNT (AUTO) 265 K/uL (150-450); RED BLOOD CELL COUNT(AUTO) 4.95 MIL/uL (4.50-5.90); RED CELL DISTRIBUTION WIDTH 15.1 % (11.5-14.5)
[2018-09-19 11:35] LABS: AMPHET/METH SCREEN,URINE NEGATIVE (NEGATIVE); BARBITURATE SCREEN, URINE NEGATIVE (NEGATIVE); BENZODIAZEPINES SCREEN,URINE NEGATIVE (NEGATIVE); CANNABINOID SCREEN,URINE NEGATIVE (NEGATIVE); COCAINE SCREEN,URINE NEGATIVE (NEGATIVE); METHADONE SCREEN, URINE NEGATIVE (NEGATIVE); OPIATE SCREEN,URINE NEGATIVE (NEGATIVE)
[2018-09-19 11:36] LABS: PHENCYCLIDINE SCREEN,URINE NEGATIVE (NEGATIVE)
[2018-09-19 11:46] LABS: ANION GAP 12 mmol/L (8-16); CALCIUM, TOTAL 9.3 mg/dL (8.8-10.5); CARBON DIOXIDE 25 mmol/L (22-29); CHLORIDE 107 mmol/L (98-107); CREATININE 0.76 mg/dL (0.60-1.30); GLOMERULAR FILTR. RATE CALC > 60 mL/min (>60); GLUCOSE,RANDOM 94 mg/dL (70-110); POTASSIUM 3.7 mmol/L (3.5-5.1); SODIUM SERUM 144 mmol/L (136-145); UREA NITROGEN, BLOOD 13 mg/dL (7-18)
[2018-09-19 11:50] LABS: ALANINE AMINOTRANSFERASE 24 U/L (12-78); ALKALINE PHOSPHATASE 65 U/L (46-116); ASPARTATE AMINOTRANSFERASE 22 U/L (15-37); BILIRUBIN,TOTAL 0.3 mg/dL (0.1-1.0); TOTAL PROTEIN, SERUM 7.5 g/dL (6.4-8.2)
[2018-09-19 12:03] LABS: VALPROIC ACID < 3 mcg/mL (50-100)
[2018-09-19] MEDS ORDERED: ZOLPIDEM TARTRATE 10 MG TABLET PO PRN (13:15)
[2018-09-19] MEDS ORDERED: LORazepam 2 MG TABLET PO PRN (13:15)
[2018-09-19 16:44] VITALS: BP 122/72
[2018-09-19] MEDS ORDERED: HALOPERIDOL LACTATE 5 MG/ML VIAL ONE (17:51)
[2018-09-19] MEDS ORDERED: DiphenhydrAMINE HCL 50 MG/ML VIAL ONE (17:51)
[2018-09-19] MEDS ORDERED: LORazepam 2 MG/ML VIAL ONE (17:51)
[2018-09-19] MEDS ORDERED: LORazepam 2 MG/ML VIAL IM ONE (18:00)
[2018-09-19] MEDS ORDERED: HALOPERIDOL LACTATE 5 MG/ML VIAL IM ONE (18:00)
[2018-09-19] MEDS ORDERED: DiphenhydrAMINE HCL 50 MG/ML VIAL IM ONE (18:00)
[2018-09-19] MEDS ORDERED: CloNIDine HCL 0.1 MG TABLET PO PRN (19:15)
[2018-09-19] MEDS ORDERED: GuaiFENesin/D-METHORPHAN [SUGAR-FREE] 200-20MG/10 ML SYRUP UDCUP PO PRN (19:15)
[2018-09-19] MEDS ORDERED: DOCUSATE SODIUM 100 MG CAPSULE PO PRN (19:15)
[2018-09-19] MEDS ORDERED: MAG HYDROX/AL HYDROX/SIMETH ES 30 ML SUSPENSION UDCUP PO PRN (19:15)
[2018-09-19] MEDS ORDERED: ALBUTEROL SULFATE HFA 90 MCG/PUFF 8 GM INHALER IH PRN (19:15)
[2018-09-19] MEDS ORDERED: ONDANSETRON HCL 4 MG TABLET PO PRN (19:15)
[2018-09-19] MEDS ORDERED: MAGNESIUM HYDROXIDE SUSPENSION 30 ML UDCUP PO PRN (19:15)
[2018-09-19] MEDS ORDERED: LOPERAMIDE HCL 2 MG CAPSULE PO PRN (19:15)
[2018-09-19] MEDS ORDERED: IBUPROFEN 400 MG TABLET PO PRN (19:15)
[2018-09-19] MEDS ORDERED: PETROLATUM,WHITE 28 GM JELLY TP PRN (19:15)
[2018-09-19] MEDS ORDERED: NICOTINE 14 MG/24 HOUR PATCH TD PRN (19:15)
[2018-09-19] MEDS ORDERED: ACETAMINOPHEN 325 MG TABLET PO PRN (19:15)
[2018-09-20 07:05] LABS: HEMOGLOBIN A1C 5.3 % (4.5-6.2)
[2018-09-20 07:14] LABS: THYROID STIMULATING HORMONE 2.04 uIU/mL (0.36-3.74)
[2018-09-20] MEDS: BACITRACIN 28.4 GM OINTMENT TP SCH ×2 (09:00→16:42)
[2018-09-20] MEDS: FERROUS SULFATE 325 MG EC TABLET PO SCH ×2 (09:22→16:43)
[2018-09-20 10:35] VITALS: BP 131/98
[2018-09-20 20:43] VITALS: BP 111/54
[2018-09-20] MEDS: DIVALPROEX SODIUM 500 MG ER TABLET PO SCH (21:03)
[2018-09-20] MEDS: RisperiDONE 2 MG TABLET PO SCH (21:03)
[2018-09-21] MEDS: FERROUS SULFATE 325 MG EC TABLET PO SCH ×2 (07:11→16:35)
[2018-09-21] MEDS: BACITRACIN 28.4 GM OINTMENT TP SCH ×2 (09:00→16:35)
[2018-09-21] MEDS: RisperiDONE 2 MG TABLET PO SCH ×2 (09:17→20:18)
[2018-09-21 09:49] VITALS: BP 124/78
[2018-09-21 16:47] VITALS: BP 113/92
[2018-09-21] MEDS: DIVALPROEX SODIUM 500 MG ER TABLET PO SCH (20:18)
[2018-09-22 00:55] VITALS: BP 129/91
[2018-09-22] MEDS: FERROUS SULFATE 325 MG EC TABLET PO SCH ×2 (07:13→16:30)
[2018-09-22 08:25] VITALS: BP 118/80
[2018-09-22] MEDS: BACITRACIN 28.4 GM OINTMENT TP SCH ×2 (08:51→16:32)
[2018-09-22] MEDS: RisperiDONE 2 MG TABLET PO SCH ×2 (08:52→21:05)
[2018-09-22 17:00] VITALS: BP 124/74
[2018-09-22] MEDS: DIVALPROEX SODIUM 500 MG ER TABLET PO SCH (21:05)
[2018-09-23 06:11] VITALS: BP 146/62
[2018-09-23] MEDS: FERROUS SULFATE 325 MG EC TABLET PO SCH ×2 (06:55→16:17)
[2018-09-23] MEDS: HALOPERIDOL 5 MG TABLET PO PRN ×2 (08:35→16:17)
[2018-09-23] MEDS: RisperiDONE 2 MG TABLET PO SCH ×2 (08:35→20:06)
[2018-09-23] MEDS: BACITRACIN 28.4 GM OINTMENT TP SCH ×2 (08:35→16:16)
[2018-09-23 11:39] VITALS: BP 128/79
[2018-09-23] MEDS: DIVALPROEX SODIUM 500 MG ER TABLET PO SCH (20:06)
[2018-09-24] MEDS: FERROUS SULFATE 325 MG EC TABLET PO SCH ×2 (06:46→17:02)
[2018-09-24] MEDS: RisperiDONE 2 MG TABLET PO SCH ×2 (08:51→20:48)
[2018-09-24] MEDS: BACITRACIN 28.4 GM OINTMENT TP SCH ×2 (09:00→17:07)
[2018-09-24 10:06] VITALS: BP 154/79
[2018-09-24 16:00] VITALS: BP 100/64
[2018-09-24] MEDS: DIVALPROEX SODIUM 500 MG ER TABLET PO SCH (20:48)
[2018-09-25 00:45] VITALS: BP 117/74
[2018-09-25] MEDS: FERROUS SULFATE 325 MG EC TABLET PO SCH ×2 (07:07→16:52)
[2018-09-25 08:30] VITALS: BP 117/80
[2018-09-25] MEDS: RisperiDONE 2 MG TABLET PO SCH (08:52)
[2018-09-25 13:58] VITALS: BP 107/57
[2018-09-25] MEDS: BACITRACIN 28.4 GM OINTMENT TP SCH ×2 (14:20→16:52)
[2018-09-25 17:14] VITALS: BP 138/71
[2018-09-25] MEDS: RisperiDONE 3 MG TABLET PO SCH (20:15)
[2018-09-25] MEDS: DIVALPROEX SODIUM 500 MG ER TABLET PO SCH (20:15)
[2018-09-26 01:47] VITALS: BP 141/76
[2018-09-26] MEDS: FERROUS SULFATE 325 MG EC TABLET PO SCH ×2 (06:50→16:37)
[2018-09-26 08:03] VITALS: BP 111/66
[2018-09-26] MEDS: BACITRACIN 28.4 GM OINTMENT TP SCH ×2 (08:42→16:38)
[2018-09-26] MEDS: RisperiDONE 3 MG TABLET PO SCH ×2 (08:42→20:36)
[2018-09-26 16:42] VITALS: BP 102/65
[2018-09-26] MEDS: DIVALPROEX SODIUM 500 MG ER TABLET PO SCH (20:36)
[2018-09-27] MEDS: FERROUS SULFATE 325 MG EC TABLET PO SCH ×2 (07:01→16:39)
[2018-09-27 09:14] VITALS: BP 122/71
[2018-09-27] MEDS: BACITRACIN 28.4 GM OINTMENT TP SCH ×2 (10:03→16:40)
[2018-09-27] MEDS: RisperiDONE 3 MG TABLET PO SCH ×2 (10:04→20:44)
[2018-09-27 17:00] VITALS: BP 103/75
[2018-09-27] MEDS: DIVALPROEX SODIUM 500 MG ER TABLET PO SCH (20:44)
[2018-09-28 01:13] VITALS: BP 134/94
[2018-09-28] MEDS: FERROUS SULFATE 325 MG EC TABLET PO SCH ×2 (06:29→16:42)
[2018-09-28] MEDS: BACITRACIN 28.4 GM OINTMENT TP SCH ×2 (09:00→16:41)
[2018-09-28] MEDS: RisperiDONE 3 MG TABLET PO SCH ×2 (09:12→20:48)
[2018-09-28 16:22] VITALS: BP 150/58
[2018-09-28] MEDS: DIVALPROEX SODIUM 500 MG ER TABLET PO SCH (20:08)
[2018-09-29] MEDS: FERROUS SULFATE 325 MG EC TABLET PO SCH ×2 (06:51→18:47)
[2018-09-29] MEDS: RisperiDONE 3 MG TABLET PO SCH ×2 (09:14→20:05)
[2018-09-29] MEDS: BACITRACIN 28.4 GM OINTMENT TP SCH ×2 (09:14→16:02)
[2018-09-29 10:41] VITALS: BP 144/80
[2018-09-29 16:27] VITALS: BP 102/57
[2018-09-29] MEDS: DIVALPROEX SODIUM 500 MG ER TABLET PO SCH (20:05)
[2018-09-30] MEDS: FERROUS SULFATE 325 MG EC TABLET PO SCH ×2 (06:34→16:22)
[2018-09-30] MEDS: RisperiDONE 3 MG TABLET PO SCH ×2 (08:01→20:27)
[2018-09-30] MEDS: BACITRACIN 28.4 GM OINTMENT TP SCH ×2 (08:02→16:22)
[2018-09-30 08:05] VITALS: BP 106/90
[2018-09-30 16:17] VITALS: BP 110/72
[2018-09-30] MEDS: DIVALPROEX SODIUM 500 MG ER TABLET PO SCH (20:27)
[2018-10-01] MEDS: FERROUS SULFATE 325 MG EC TABLET PO SCH ×2 (07:17→16:21)
[2018-10-01] MEDS: BACITRACIN 28.4 GM OINTMENT TP SCH ×2 (08:27→16:35)
[2018-10-01] MEDS: RisperiDONE 3 MG TABLET PO SCH ×2 (08:27→20:32)
[2018-10-01 09:07] VITALS: BP 140/87
[2018-10-01 16:47] VITALS: BP 107/86
[2018-10-01] MEDS: DIVALPROEX SODIUM 500 MG ER TABLET PO SCH (20:32)
[2018-10-02] MEDS: FERROUS SULFATE 325 MG EC TABLET PO SCH ×2 (06:48→16:16)
[2018-10-02 08:38] VITALS: BP 110/65
[2018-10-02] MEDS: BACITRACIN 28.4 GM OINTMENT TP SCH ×2 (10:01→17:11)
[2018-10-02] MEDS: RisperiDONE 3 MG TABLET PO SCH ×2 (10:01→20:31)
[2018-10-02 17:15] VITALS: BP 112/60
[2018-10-02] MEDS: DIVALPROEX SODIUM 500 MG ER TABLET PO SCH (20:31)
[2018-10-03] MEDS: FERROUS SULFATE 325 MG EC TABLET PO SCH ×2 (06:30→17:50)
[2018-10-03 08:40] VITALS: BP 138/76
[2018-10-03] MEDS: RisperiDONE 3 MG TABLET PO SCH ×2 (09:11→20:11)
[2018-10-03] MEDS: BACITRACIN 28.4 GM OINTMENT TP SCH ×2 (09:11→16:34)
[2018-10-03 19:29] VITALS: BP 115/58
[2018-10-03] MEDS: DIVALPROEX SODIUM 500 MG ER TABLET PO SCH (20:11)
[2018-10-04] MEDS: FERROUS SULFATE 325 MG EC TABLET PO SCH ×2 (07:07→17:37)
[2018-10-04 08:05] VITALS: BP 127/79
[2018-10-04] MEDS: BACITRACIN 28.4 GM OINTMENT TP SCH ×2 (08:14→17:00)
[2018-10-04] MEDS: RisperiDONE 3 MG TABLET PO SCH ×2 (08:14→20:32)
[2018-10-04] MEDS ORDERED: PALIPERIDONE PALMITATE 234 MG/1.5 ML SYRINGE IM ONE (11:15)
[2018-10-04 16:25] VITALS: BP 96/60
[2018-10-04] MEDS: DIVALPROEX SODIUM 500 MG ER TABLET PO SCH (20:32)
[2018-10-05] MEDS: FERROUS SULFATE 325 MG EC TABLET PO SCH ×2 (06:45→16:37)
[2018-10-05 08:00] VITALS: BP 109/79
[2018-10-05] MEDS: RisperiDONE 3 MG TABLET PO SCH ×2 (08:29→21:40)
[2018-10-05] MEDS: BACITRACIN 28.4 GM OINTMENT TP SCH ×2 (08:29→16:37)
[2018-10-05 16:33] VITALS: BP 98/51
[2018-10-05] MEDS: DIVALPROEX SODIUM 500 MG ER TABLET PO SCH (21:40)
[2018-10-06 00:54] VITALS: BP 100/77
[2018-10-06] MEDS: FERROUS SULFATE 325 MG EC TABLET PO SCH ×2 (07:12→17:57)
[2018-10-06] MEDS: RisperiDONE 3 MG TABLET PO SCH ×2 (08:07→20:43)
[2018-10-06] MEDS: BACITRACIN 28.4 GM OINTMENT TP SCH ×2 (08:08→17:57)
[2018-10-06 16:17] VITALS: BP 86/60
[2018-10-06] MEDS: DIVALPROEX SODIUM 500 MG ER TABLET PO SCH (20:43)
[2018-10-07] MEDS: FERROUS SULFATE 325 MG EC TABLET PO SCH ×2 (07:04→16:15)
[2018-10-07] MEDS: BACITRACIN 28.4 GM OINTMENT TP SCH (09:13)
[2018-10-07] MEDS: RisperiDONE 3 MG TABLET PO SCH ×2 (09:13→20:19)
[2018-10-07 10:45] VITALS: BP 97/60
[2018-10-07 16:56] VITALS: BP 112/60
[2018-10-07] MEDS: DIVALPROEX SODIUM 500 MG ER TABLET PO SCH (20:19)
[2018-10-08 01:09] VITALS: BP 95/61
[2018-10-08] MEDS: FERROUS SULFATE 325 MG EC TABLET PO SCH ×2 (06:32→18:35)
[2018-10-08 08:00] VITALS: BP 107/77
[2018-10-08] MEDS ORDERED: PALIPERIDONE PALMITATE 156 MG/ML SYRINGE IM ONE (09:00)
[2018-10-08] MEDS: RisperiDONE 3 MG TABLET PO SCH ×2 (09:02→20:14)
[2018-10-08 16:42] VITALS: BP 98/65
[2018-10-08] MEDS: DIVALPROEX SODIUM 500 MG ER TABLET PO SCH (20:15)
[2018-10-09] MEDS: FERROUS SULFATE 325 MG EC TABLET PO SCH ×2 (06:37→16:59)
[2018-10-09] MEDS: RisperiDONE 3 MG TABLET PO SCH ×2 (08:31→20:11)
[2018-10-09 17:38] VITALS: BP 133/77
[2018-10-09] MEDS: DIVALPROEX SODIUM 500 MG ER TABLET PO SCH (20:11)
[2018-10-10] MEDS: FERROUS SULFATE 325 MG EC TABLET PO SCH ×2 (06:30→16:35)
[2018-10-10] MEDS: RisperiDONE 3 MG TABLET PO SCH ×2 (08:04→20:30)
[2018-10-10 08:05] VITALS: BP 94/64
[2018-10-10 18:06] VITALS: BP 110/80
[2018-10-10] MEDS: DIVALPROEX SODIUM 500 MG ER TABLET PO SCH (20:30)
[2018-10-11] MEDS: FERROUS SULFATE 325 MG EC TABLET PO SCH ×2 (06:35→18:30)
[2018-10-11] MEDS: RisperiDONE 3 MG TABLET PO SCH ×2 (08:30→20:15)
[2018-10-11 10:13] VITALS: BP 136/78
[2018-10-11] MEDS: DIVALPROEX SODIUM 500 MG ER TABLET PO SCH (20:15)
[2018-10-11 21:41] VITALS: BP 112/82
[2018-10-12] MEDS: FERROUS SULFATE 325 MG EC TABLET PO SCH ×2 (06:31→18:50)
[2018-10-12] MEDS: RisperiDONE 3 MG TABLET PO SCH ×2 (08:32→20:06)
[2018-10-12 09:23] VITALS: BP 98/74
[2018-10-12 16:31] VITALS: BP 105/62
[2018-10-12] MEDS: DIVALPROEX SODIUM 500 MG ER TABLET PO SCH (20:07)
[2018-10-13] MEDS: FERROUS SULFATE 325 MG EC TABLET PO SCH ×2 (06:47→16:44)
[2018-10-13 08:05] VITALS: BP 116/83
[2018-10-13] MEDS: RisperiDONE 3 MG TABLET PO SCH ×2 (08:06→20:47)
[2018-10-13 16:04] VITALS: BP 98/55
[2018-10-13] MEDS: DIVALPROEX SODIUM 500 MG ER TABLET PO SCH (20:47)
[2018-10-14 02:04] VITALS: BP 128/86
[2018-10-14] MEDS: FERROUS SULFATE 325 MG EC TABLET PO SCH ×2 (07:07→16:39)
[2018-10-14] MEDS: RisperiDONE 3 MG TABLET PO SCH ×2 (08:29→20:32)
[2018-10-14 13:27] VITALS: BP 98/57
[2018-10-14 16:31] VITALS: BP 101/54
[2018-10-14] MEDS: DIVALPROEX SODIUM 500 MG ER TABLET PO SCH (20:32)
[2018-10-15] MEDS: FERROUS SULFATE 325 MG EC TABLET PO SCH ×2 (07:10→16:23)
[2018-10-15 08:05] VITALS: BP 105/67
[2018-10-15] MEDS: RisperiDONE 3 MG TABLET PO SCH ×2 (08:25→20:32)
[2018-10-15 17:09] VITALS: BP 99/69
[2018-10-15] MEDS: DIVALPROEX SODIUM 500 MG ER TABLET PO SCH (20:32)
[2018-10-16] MEDS: FERROUS SULFATE 325 MG EC TABLET PO SCH ×2 (07:00→16:42)
[2018-10-16 08:05] VITALS: BP 133/72
[2018-10-16] MEDS: RisperiDONE 3 MG TABLET PO SCH ×2 (08:17→20:33)
[2018-10-16 16:06] VITALS: BP 111/79
[2018-10-16] MEDS: DIVALPROEX SODIUM 500 MG ER TABLET PO SCH (20:33)
[2018-10-17] MEDS: FERROUS SULFATE 325 MG EC TABLET PO SCH ×2 (06:57→17:25)
[2018-10-17] MEDS: RisperiDONE 3 MG TABLET PO SCH ×2 (08:52→20:10)
[2018-10-17 11:35] VITALS: BP 124/84
[2018-10-17 16:44] VITALS: BP 123/76
[2018-10-17] MEDS: DIVALPROEX SODIUM 500 MG ER TABLET PO SCH (20:10)
[2018-10-18 02:15] VITALS: BP 120/73
[2018-10-18] MEDS: FERROUS SULFATE 325 MG EC TABLET PO SCH ×2 (06:46→16:16)
[2018-10-18 08:11] VITALS: BP 98/70
[2018-10-18] MEDS: RisperiDONE 3 MG TABLET PO SCH ×2 (08:45→20:52)
[2018-10-18 17:12] VITALS: BP 104/72
[2018-10-18] MEDS: DIVALPROEX SODIUM 500 MG ER TABLET PO SCH (20:52)
[2018-10-19] MEDS: FERROUS SULFATE 325 MG EC TABLET PO SCH ×2 (06:30→16:09)
[2018-10-19 08:10] VITALS: BP 92/53
[2018-10-19] MEDS: RisperiDONE 3 MG TABLET PO SCH ×2 (08:34→20:33)
[2018-10-19 16:50] VITALS: BP 95/62
[2018-10-19] MEDS: DIVALPROEX SODIUM 500 MG ER TABLET PO SCH (20:34)
[2018-10-20 00:34] VITALS: BP 93/66
[2018-10-20] MEDS: FERROUS SULFATE 325 MG EC TABLET PO SCH ×2 (06:32→16:39)
[2018-10-20 08:00] VITALS: BP 112/67
[2018-10-20] MEDS: RisperiDONE 3 MG TABLET PO SCH ×2 (08:56→20:29)
[2018-10-20 16:20] VITALS: BP 135/88
[2018-10-20] MEDS: DIVALPROEX SODIUM 500 MG ER TABLET PO SCH (20:29)
[2018-10-21] MEDS: FERROUS SULFATE 325 MG EC TABLET PO SCH ×2 (06:33→16:33)
[2018-10-21 08:00] VITALS: BP 104/69
[2018-10-21] MEDS: RisperiDONE 3 MG TABLET PO SCH ×2 (08:17→20:20)
[2018-10-21 17:16] VITALS: BP 113/74
[2018-10-21] MEDS: DIVALPROEX SODIUM 500 MG ER TABLET PO SCH (20:20)
[2018-10-22] MEDS: FERROUS SULFATE 325 MG EC TABLET PO SCH ×2 (06:56→16:33)
[2018-10-22 08:00] VITALS: BP 104/61
[2018-10-22] MEDS: RisperiDONE 3 MG TABLET PO SCH ×2 (08:57→20:08)
[2018-10-22] MEDS ORDERED: HALOPERIDOL 5 MG TABLET PO PRN (14:00)
[2018-10-22] MEDS ORDERED: DIVA500T52 PO (19:53)
[2018-10-22] MEDS ORDERED: RISP3 PO (19:54)
[2018-10-22] MEDS ORDERED: PALI234D IM (19:54)
[2018-10-22] MEDS ORDERED: FERR-89 PO (20:01)
[2018-10-22] MEDS: DIVALPROEX SODIUM 500 MG ER TABLET PO SCH (20:08)
[2018-11-05] MEDS ORDERED: PALIPERIDONE PALMITATE 234 MG/1.5 ML SYRINGE IM SCH (09:00)
== END 2018-10-22 18:00 | DRG 885 ==
LOC: EMS 09:57 → 3EX 14:43
DX: F20.0 Paranoid schizophrenia (principal); F17.210 Nicotine dependence, cigarettes, uncomplicated; K21.9 Gastro-esophageal reflux disease without esophagitis; R45.87 Impulsiveness; G47.00 Insomnia, unspecified; D64.9 Anemia, unspecified; F41.9 Anxiety disorder, unspecified; F19.10 Other psychoactive substance abuse, uncomplicated; Z79.899 Other long term (current) drug therapy; Z59.0 Homelessness
CPT/HCPCS: 83036; 84443; 90686; G0378; G0480; J1200; J1630; J2060